=== PATIENT | female | born 1970 | race Caucasian/White ===

== ENCOUNTER 2021-11-25 14:54 | Emergency (ER) | payer MEDICAID ==
[~2021-11-25] VITALS: Ht 160 cm; Wt 81.0 kg
[2021-11-25 17:45] LABS: BASOPHILS % 0.9 % (0.0-2.0); EOSINOPHILS % 1.2 % (0.0-5.0); HEMATOCRIT. 39.5 % (36.0-48.0); HEMOGLOBIN. 13.3 g/dL (12.0-16.0); LYMPHOCYTES % 25.3 % (20.0-50.0); MEAN CORPUSCULAR HEMOGLOBIN 30.3 pg (28.0-32.0); MEAN CORPUSCULAR VOLUME 90.1 fL (81.0-99.0); MEAN PLATELET VOLUME 9.8 fl (7.4-10.4); MONOCYTES % 5.5 % (2.0-8.0); NEUTROPHILS % 67.1 % (40.0-76.0); PLATELET 229 x1000/uL (130-400); RED BLOOD CELL COUNT 4.38 mill/uL (4.2-5.4); RED CELL DISTRIBUTION WIDTH 13.3 % (11.6-14.6)
[2021-11-25 17:48] LABS: CHLORIDE 108 mEq/L (98-107)
[2021-11-25 20:10] LABS: HCG SCREEN NEGATIVE
[2021-11-25] MEDS ORDERED: IBUPROFEN 600MG TABLET PO ONE (20:30)
[2021-11-25 20:37] VITALS: BP 141/77
[2021-11-25 20:59] LABS: CLARITY URINE CLEAR (CLEAR); COLOR URINE YELLOW (YELLOW); KETONES URINE NEGATIVE (NEGATIVE); LEUKOCYTE ESTERASE URINE NEGATIVE (NEGATIVE); NITRITE URINE NEGATIVE (NEGATIVE); OCCULT BLOOD URINE 1+ (NEGATIVE); PROTEIN URINE NEGATIVE (NEGATIVE); SPECIFIC GRAVITY URINE 1.014 (1.005-1.030); UROBILINOGEN URINE 0.2 E.U./dL (0.2-1.0)
[2021-11-25] MEDS ORDERED: IBUP-2029 MT (22:20)
== END 2021-11-25 22:35 | disposition home or self-care (01) ==
LOC: ER 14:54
DX: R10.0 Acute abdomen (principal); R03.0 Elevated blood-pressure reading, without diagnosis of hypertension
CPT/HCPCS: 36415; 74018; 80053; 81003; 81025; 84703; 85025; 99284